=== PATIENT | female | born 1950 | race Caucasian/White ===

== ENCOUNTER 2018-02-14 06:45 | Day surgery (SDC) ==
[2018-02-14] MEDS ORDERED: DEX-MOXI-KETOR OPTH INJ 1/0.5/0.4 MG/ML IO ONE (07:16)
[2018-02-14] MEDS ORDERED: ZOFRAN 4 MG/2 ML IVP ONE (07:16)
[2018-02-14] MEDS ORDERED: LIDOCAINE 1% 20 ML MDV ID STA (07:16)
[2018-02-14] MEDS ORDERED: BRIMONIDINE TARTRATE 0.2% OPTH SOL OP PRN (07:16)
[2018-02-14] MEDS ORDERED: LIDOCAINE 1%/PHENYLEPHRINE 1.5% BSS (SURGERY) INTRAOCULA ONE (07:16)
[2018-02-14] MEDS ORDERED: BSS WITH EPINEPHRINE OP ONE (07:16)
[2018-02-14] MEDS: TETRACAINE 0.5% UNIT-DOSE OP PRN ×2 (07:30→08:10)
[2018-02-14] MEDS: CYCLOGYL 2% OPTH OP PRN ×3 (07:30→07:40)
[2018-02-14] MEDS: BETADINE OPTH PREP OP PRN ×2 (07:30→08:10)
[2018-02-14] MEDS ORDERED: VERSED ONE (08:10)
[2018-02-14] MEDS ORDERED: SUBLIMAZE ONE (08:10)
[2018-02-14] MEDS ORDERED: BENADRYL ONE (08:10)
[2018-02-16 14:30] VITALS: BP 138/67
== END 2018-02-14 08:50 | disposition home or self-care (01) ==
LOC: SURG 06:45
PROVIDERS: ATTEND Ophthalmology
DX: H25.811 Combined forms of age-related cataract, right eye (principal)

== ENCOUNTER 2018-02-20 08:56 | Day surgery (SDC) ==
[2018-02-20] MEDS: BETADINE OPTH PREP OP PRN ×2 (10:05→10:36)
[2018-02-20] MEDS: TETRACAINE 0.5% UNIT-DOSE OP PRN ×2 (10:05→10:36)
[2018-02-20] MEDS: CYCLOGYL 2% OPTH OP PRN ×3 (10:05→10:15)
[2018-02-20] MEDS ORDERED: LIDOCAINE 1%/PHENYLEPHRINE 1.5% BSS (SURGERY) INTRAOCULA ONE (10:14)
[2018-02-20] MEDS ORDERED: BRIMONIDINE TARTRATE 0.2% OPTH SOL OP PRN (10:14)
[2018-02-20] MEDS ORDERED: LIDOCAINE 1% 20 ML MDV ID STA (10:14)
[2018-02-20] MEDS ORDERED: ZOFRAN 4 MG/2 ML IVP ONE (10:14)
[2018-02-20] MEDS ORDERED: DEX-MOXI-KETOR OPTH INJ 1/0.5/0.4 MG/ML IO ONE (10:14)
[2018-02-20] MEDS ORDERED: BSS WITH EPINEPHRINE OP ONE (10:14)
[2018-02-20] MEDS ORDERED: AK-DILATE 10% OPTH SOL OP PRN (10:20)
[2018-02-20] MEDS ORDERED: SUBLIMAZE ONE (10:40)
[2018-02-20] MEDS ORDERED: VERSED ONE (10:40)
[2018-02-20 12:53] VITALS: TEMP 97.2
[2018-02-20 13:21] VITALS: BP 132/59
== END 2018-02-20 11:35 | disposition home or self-care (01) ==
LOC: SURG 08:56
PROVIDERS: ATTEND Ophthalmology
DX: H25.812 Combined forms of age-related cataract, left eye (principal)